=== PATIENT | male | born 1990 | race African-American/Black ===

== ENCOUNTER 2016-07-15 21:10 | Emergency (ER) | payer OTHER ==
[~2016-07-15] VITALS: Ht 182.9 cm; Wt 68.0 kg
[2016-07-15 21:33] VITALS: BP 124/71
[2016-07-15] MEDS ORDERED: CYCLOBENZAPRINE HCL 10 MG TAB PO ONE (23:15)
[2016-07-15] MEDS ORDERED: IBUPROFEN 600 MG TAB PO ONE (23:15)
== END 2016-07-15 23:17 | disposition home or self-care (01) ==
LOC: ER 21:24
DX: G89.4 Chronic pain syndrome (principal); M54.9 Dorsalgia, unspecified

== ENCOUNTER 2016-11-19 05:53 | Observation (INO) | payer OTHER ==
[~2016-11-19] VITALS: Ht 182.9 cm; Wt 86.2 kg
[2016-11-19 07:13] LABS: Urine Bilirubin Negative (Negative); Urine Blood Negative /uL (Negative); Urine Color Yellow (Yellow); Urine Glucose Normal (Normal); Urine Ketone Negative (Negative); Urine Mucus FEW (None Seen); Urine Nitrite Negative (Negative); Urine RBC 7 /hpf (0 - 3)
[2016-11-19 07:33] LABS: Basophils # (auto) 0 uL; Basophils % (auto) 0.5 % (0.0-2.0); Eosinophils # (auto) 0.2 uL; Eosinophils % (auto) 3.5 % (0.0-7.0); Hematocrit 41.4 % (41.0-53.0); Hemoglobin 13.7 g/dL (13.5-17.5); Lymphocytes # (auto) 2.3 uL; Lymphocytes % (auto) 40.8 % (10.0-50.0); Mean Corpuscular Hemoglobin 28.5 pg (28.0-32.0); Mean Corpuscular Hgb Conc. 33.1 g/dL (32.0-36.0); Mean Corpuscular Volume 86.2 fL (80.0-100.0); Mean Platelet Volume 10.5 fL (7.4-10.4); Monocytes # (auto) 0.4 uL; Monocytes % (auto) 6.9 % (0.0-12.0); Neutrophils # (auto) 2.7 uL; Neutrophils % (auto) 48.3 % (37.0-80.0); Platelet Count (auto) 204 10^3/uL (140-450); Red Cell Distribution Width 15.3 % (11.6-16.0); SUSPECT VIEW TRANSMISSION; White Blood Cell 5.6 10^3/uL (4.4-10.8)
[2016-11-19 07:40] LABS: INR 1.05 (0.9-1.15); Partial Thromboplastin Time 26.6 sec (22.64-33.71); Prothrombin Time 11.4 sec (9.37-12.3)
[2016-11-19 07:53] LABS: Albumin 3.7 g/dL (3.4-5.0); BUN/Creatinine Ratio 13.7; Calcium 8.6 mg/dL (8.5-10.1)
[2016-11-19 07:54] LABS: Acetaminophen < 2.0 ug/mL (10-30)
[2016-11-19 07:55] LABS: Bilirubin, Total 0.2 mg/dL (0.2-1.0); Total Protein 7.3 g/dL (6.4-8.2)
[2016-11-20] MEDS ORDERED: LORazepam 2MG/ML-1ML VIAL ONE (19:38)
[2016-11-20] MEDS ORDERED: HALOPERIDOL LACTATE 5 MG/ML INJ VIAL ONE (19:38)
[2016-11-20] MEDS ORDERED: diphenhdrAMINE HCL 50 MG/1 ML VL ONE (19:39)
[2016-11-20] MEDS ORDERED: LORazepam 2MG/ML-1ML VIAL IM ONE (19:45)
[2016-11-20] MEDS ORDERED: diphenhdrAMINE HCL 50 MG/1 ML VL IM ONE (19:45)
[2016-11-20] MEDS ORDERED: HALOPERIDOL LACTATE 5 MG/ML INJ VIAL IM ONE (19:45)
[2016-11-22 08:00] VITALS: BP 125/62
== END 2016-11-22 12:04 | disposition home or self-care (01) | DRG 756 ==
LOC: ER 05:53 → EDUNIT# 05:53 → OVERFLOW 12:47 → ER 11-22 12:04
PROVIDERS: ADMIT Emergency Medicine; ATTEND Emergency Medicine
DX: R45.851 Suicidal ideations (principal); F32.9 Major depressive disorder, single episode, unspecified; F19.90 Other psychoactive substance use, unspecified, uncomplicated; F41.9 Anxiety disorder, unspecified; F20.9 Schizophrenia, unspecified; F17.210 Nicotine dependence, cigarettes, uncomplicated
CPT/HCPCS: 36415; 80053; 80307; 80329; 81001; 85025; 85610; 85730; 96372; 99285; G0378; J1200; J1630; J2060

== ENCOUNTER 2016-12-03 08:27 | Emergency (ER) | payer OTHER ==
[~2016-12-03] VITALS: Ht 185.4 cm; Wt 70.3 kg
[2016-12-03 08:30] VITALS: BP 121/71
== END 2016-12-03 09:02 | disposition home or self-care (01) ==
LOC: ER 08:28
DX: J20.9 Acute bronchitis, unspecified (principal); J01.10 Acute frontal sinusitis, unspecified; F17.210 Nicotine dependence, cigarettes, uncomplicated; F12.10 Cannabis abuse, uncomplicated

== ENCOUNTER 2016-12-31 21:11 | Emergency (ER) | payer OTHER ==
[~2016-12-31] VITALS: Ht 182.9 cm; Wt 70.3 kg
[2016-12-31 21:50] LABS: Basophils # (auto) 0.1 uL; CONDITION Y; Eosinophils # (auto) 0.2 uL; Hematocrit 43.3 % (41.0-53.0); Hemoglobin 14.1 g/dL (13.5-17.5); Lymphocytes # (auto) 2.6 uL; Lymphocytes % (auto) 38.9 % (10.0-50.0); Mean Corpuscular Hemoglobin 28.5 pg (28.0-32.0); Mean Corpuscular Hgb Conc. 32.7 g/dL (32.0-36.0); Mean Corpuscular Volume 87.4 fL (80.0-100.0); Mean Platelet Volume 9.3 fL (7.4-10.4); Monocytes # (auto) 0.7 uL; Monocytes % (auto) 10.5 % (0.0-12.0); Neutrophils # (auto) 3.1 uL; Neutrophils % (auto) 46.6 % (37.0-80.0); Platelet Count (auto) 272 10^3/uL (140-450); Red Cell Distribution Width 15.5 % (11.6-16.0); White Blood Cell 6.6 10^3/uL (4.4-10.8)
[2016-12-31 22:10] LABS: Albumin 4.2 g/dL (3.4-5.0); Amylase 80 U/L (25-115); Anion Gap 9 (5-15); Aspartate Aminotransferase 28 U/L (15-37); Blood Urea Nitrogen 15 mg/dL (7-18); Calcium 8.8 mg/dL (8.5-10.1); Carbon Dioxide 26 mmol/L (21-32); Chloride 107 mmol/L (98-107); GFR African American 98 mL/min; GFR Non-African American 81 mL/min; Glucose 82 mg/dL (74-106); Potassium 4.4 mmol/L (3.5-5.1); Sodium 142 mmol/L (136-145)
[2016-12-31 22:15] LABS: Alkaline Phosphatase 74 U/L (45-117); Bilirubin, Total 0.4 mg/dL (0.2-1.0); Total Protein 8.1 g/dL (6.4-8.2)
[2016-12-31 22:26] LABS: INR 1.05 (0.9-1.15); Partial Thromboplastin Time 25.4 sec (22.64-33.71); Prothrombin Time 11.4 sec (9.37-12.3)
[2017-01-01] MEDS ORDERED: SODIUM CHLORIDE 0.9% 1,000 ML IVB ONE (07:04)
[2017-01-01] MEDS ORDERED: NALBUPHINE HCL 10 MG/1ml INJECTION IV ONE (07:15)
[2017-01-01] MEDS ORDERED: PROMETHAZINE HCL 25 MG/ML 1ML IV PRN (07:15)
[2017-01-01 10:44] LABS: Urine Bilirubin Negative (Negative); Urine Blood Negative /uL (Negative); Urine Color Yellow (Yellow); Urine Glucose Normal (Normal); Urine Ketone Negative (Negative); Urine Mucus FEW (None Seen); Urine Nitrite Negative (Negative); Urine RBC 1 /hpf (0 - 3); Urine Squamous Epithelial Cell FEW /hpf (<5); Urine pH 5.5 (5.0-8.0)
[2017-01-01 11:00] VITALS: BP 110/60
== END 2017-01-01 12:43 | disposition home or self-care (01) ==
LOC: EDBD 21:11 → ER 21:14
DX: N20.1 Calculus of ureter (principal); F31.9 Bipolar disorder, unspecified; F12.10 Cannabis abuse, uncomplicated; F20.9 Schizophrenia, unspecified; F41.9 Anxiety disorder, unspecified; F17.210 Nicotine dependence, cigarettes, uncomplicated; Z87.828 Personal history of other (healed) physical injury and trauma
CPT/HCPCS: 36415; 74176; 80053; 80307; 81001; 82150; 83690; 83735; 84484; 85025; 85610; 85730; 93005; 96361; 96374; 96375; 99285; J2300; J2550; J7030

== ENCOUNTER 2017-01-01 17:55 | Emergency (ER) | payer OTHER ==
[~2017-01-01] VITALS: Ht 182.9 cm; Wt 68.0 kg
[2017-01-01 19:33] LABS: Albumin 3.8 g/dL (3.4-5.0); Anion Gap 7 (5-15); Blood Urea Nitrogen 15 mg/dL (7-18); Calcium 8.2 mg/dL (8.5-10.1); Carbon Dioxide 26 mmol/L (21-32); Chloride 110 mmol/L (98-107); Glucose 106 mg/dL (74-106); Potassium 4.9 mmol/L (3.5-5.1); Sodium 143 mmol/L (136-145)
[2017-01-01 19:35] LABS: Acetaminophen < 2.0 ug/mL (10-30); Aspartate Aminotransferase 22 U/L (15-37); BUN/Creatinine Ratio 13.2; GFR African American 99 mL/min; GFR Non-African American 82 mL/min; Salicylate 2.3 mg/dL (2.8-20.0)
[2017-01-01 19:38] LABS: Alkaline Phosphatase 66 U/L (45-117); Basophils # (auto) 0 uL; Basophils % (auto) 0.5 % (0.0-2.0); Bilirubin, Total 0.3 mg/dL (0.2-1.0); CONDITION Y; Eosinophils # (auto) 0.2 uL; Eosinophils % (auto) 4.4 % (0.0-7.0); Hematocrit 40.7 % (41.0-53.0); Hemoglobin 13.4 g/dL (13.5-17.5); Lymphocytes # (auto) 2.5 uL; Lymphocytes % (auto) 47.1 % (10.0-50.0); Mean Corpuscular Hemoglobin 28.7 pg (28.0-32.0); Mean Corpuscular Hgb Conc. 32.9 g/dL (32.0-36.0); Mean Platelet Volume 10.1 fL (7.4-10.4); Monocytes # (auto) 0.5 uL; Monocytes % (auto) 8.5 % (0.0-12.0); Neutrophils # (auto) 2.1 uL; Neutrophils % (auto) 39.5 % (37.0-80.0); Platelet Count (auto) 212 10^3/uL (140-450); Red Cell Distribution Width 15.7 % (11.6-16.0); Total Protein 7.3 g/dL (6.4-8.2); White Blood Cell 5.3 10^3/uL (4.4-10.8)
[2017-01-02 06:38] VITALS: BP 138/60
== END 2017-01-02 10:42 | disposition home or self-care (01) ==
LOC: ER 18:46
DX: R45.851 Suicidal ideations (principal); F20.9 Schizophrenia, unspecified; F32.9 Major depressive disorder, single episode, unspecified; R11.2 Nausea with vomiting, unspecified; F41.9 Anxiety disorder, unspecified; F17.210 Nicotine dependence, cigarettes, uncomplicated; F12.10 Cannabis abuse, uncomplicated
CPT/HCPCS: 36415; 80053; 80307; 80320; 80329; 85025

== ENCOUNTER 2024-04-17 05:20 | Emergency (ER) | payer MEDICAID, OTHER ==
[~2024-04-17] VITALS: Ht 185.4 cm; Wt 65.2 kg
[2024-04-17 05:57] LABS: Urine Bacteria None Seen /hpf (None Seen)
[2024-04-17 06:13] LABS: Urine Blood Negative /uL (Negative); Urine Clarity Clear (Clear); Urine Color Yellow (Yellow); Urine Mucus FEW (None Seen); Urine Protein, UAD TRACE (Negative); Urine Specific Gravity 1.032 (1.001-1.035); Urine Urobilinogen Normal (Negative); Urine WBC 1 /hpf (0 - 3); Urine pH 5.5 (5.0-9.0)
[2024-04-17 07:30] VITALS: O2SAT 98
[2024-04-17] MEDS: SERTRALINE HCL 50 MG TAB PO SCH (14:44)
[2024-04-17] MEDS: QUEtiapine FUMARATE 100 MG TAB PO ONE (14:44)
[2024-04-18 04:46] VITALS: TEMP 97.8
[2024-04-18 08:55] VITALS: RESP 18; O2SAT 98
[2024-04-19 08:17] VITALS: BP 137/69; PULSE 78; RESP 16; O2SAT 98
== END 2024-04-19 13:12 | disposition left against medical advice (07) ==
LOC: ER 05:20
DX: R45.851 Suicidal ideations (principal); F41.9 Anxiety disorder, unspecified; F32.A Depression, unspecified; F20.9 Schizophrenia, unspecified; F15.90 Other stimulant use, unspecified, uncomplicated
CPT/HCPCS: 81001